=== PATIENT | female | born 1960 | race Caucasian/White ===

== ENCOUNTER 2022-05-26 17:15 | Emergency (ER) | payer OTHER ==
[2022-05-26] MEDS ORDERED: Ketorolac 30 MG/ML SDV IM ONE (18:44)
== END 2022-05-26 20:21 | disposition home or self-care (01) ==
LOC: JP.ED 17:15
DX: S83.92XA Sprain of unspecified site of left knee, initial encounter (principal); E78.00 Pure hypercholesterolemia, unspecified; Z88.1 Allergy status to other antibiotic agents; Z91.048 Other nonmedicinal substance allergy status; Z79.899 Other long term (current) drug therapy; Z90.49 Acquired absence of other specified parts of digestive tract; X50.1XXA Overexertion from prolonged static or awkward postures, initial encounter; Y92.69 Other specified industrial and construction area as the place of occurrence of the external cause
CPT/HCPCS: 73564; 96372; 99283; J1885

== ENCOUNTER 2024-09-29 07:27 | Day surgery (SDC) | payer MEDICAID ==
[2024-09-29] MEDS ORDERED: fentaNYL 100 MCG/2 ML SDV ONE ×2 (07:48→10:05)
[2024-09-29] MEDS ORDERED: Midazolam 1 MG/ML 2 ML SDV ONE ×3 (07:48→10:04)
[2024-09-29] MEDS ORDERED: Propofol 200 MG/20 ML SDV ONE ×3 (07:48→10:45)
[2024-09-29 08:03] LABS: BASOPHILS PERCENT AUTO 0.4 % (0.1-1.3); EOSINOPHILS ABSOLUTE AUTO 0.08 K/uL (0.00-0.40); EOSINOPHILS PERCENT AUTO 1.7 % (0.0-5.4); HEMATOCRIT 41.6 % (34.3-46.0); HEMOGLOBIN 13.5 g/dL (11.2-15.5); IMMATURE GRAN PERCENT AUTO 0.2 % (0.0-0.7); LYMPHOCYTES ABSOLUTE AUTO 2.56 K/uL (0.8-3.3); LYMPHOCYTES PERCENT AUTO 53.3 % (11.4-47.7); MEAN CORPUSCULAR HGB CONC 32.5 g/dL (31.6-35.5); MEAN CORPUSCULAR VOLUME 95.6 fL (81.4-99.0); MONOCYTES PERCENT AUTO 12.5 % (3.3-12.6); NEUTROPHILS ABSOLUTE AUTO 1.53 K/uL (1.0-7.6); NEUTROPHILS PERCENT AUTO 31.9 % (40.0-78.1); PLATELET COUNT,PLT 156 K/uL (130-375); RED BLOOD CELL COUNT 4.35 M/uL (3.77-5.24); WHITE BLOOD CELL COUNT,WBC 4.8 K/uL (3.2-11.0)
[2024-09-29 08:04] LABS: BASOPHILS ABSOLUTE AUTO 0.02 K/uL (0.00-0.10); IMMATURE GRAN ABSOLUTE AUTO 0.01 K/uL (0.00-0.23)
[2024-09-29 08:19] LABS: INR 0.9; PROTHROMBIN TIME 9.7 sec (9.2-10.6)
[2024-09-29 08:29] LABS: A/G RATIO 1.2 (1.2-2.2); ALANINE AMINOTRANSFERASE,ALT 32 U/L (12-78); ALBUMIN 3.8 g/dL (3.4-5.0); ALKALINE PHOSPHATASE 104 U/L (46-116); ANION GAP 8.5 mmol/L (5.0-14.0); ASPARTATE AMNIOTRANSFERASE,AST 24 U/L (15-37); BILIRUBIN TOTAL 0.4 mg/dL (0.2-1.0); BLOOD UREA NITROGEN,BUN 13 mg/dL (7-18); CALCIUM 9.1 mg/dL (8.5-10.1); CARBON DIOXIDE,CO2 27 mmol/L (21-32); CHLORIDE,CL 106 mmol/L (100-108); CREATININE 1.1 mg/dL (0.6-1.0); EST CRCL DRUG DOSING (CG) 44.62 mL/min; ESTIMATED GFR 56 mL/min (>60); GLUCOSE RANDOM 114 mg/dL (74-106); POTASSIUM,K 4.1 mmol/L (3.6-5.2); PROTEIN TOTAL,TP 7.1 g/dL (6.4-8.2); SODIUM,NA 141 mmol/L (140-148)
[2024-09-29] MEDS ORDERED: ceFAZolin 2 GM in Premix Bag 1 BAG IV ONE (08:30)
[2024-09-29] MEDS ORDERED: ceFAZolin 2 GM in Sodium Chloride 0.9% 50 ML IV ONE (08:30)
[2024-09-29] MEDS: Lactated Ringers 1,000 ML IV SCH (08:46)
[2024-09-29] MEDS: Nozin Nasal Sanitizer NASBOTH SCH ×2 (08:52→20:04)
[2024-09-29] MEDS: Clindamycin in 0.9 % Sod Chlor 900 MG in Premix Bag 1 BAG IV ONE (09:35)
[2024-09-29] MEDS ORDERED: Diclofenac Sodium 1% Gel 100 GM Tube TOP PRN (09:41)
[2024-09-29] MEDS ORDERED: Albuterol 6.7 GM Inhaler INH PRN (09:41)
[2024-09-29] MEDS ORDERED: SUMATRIPTAN 20 MG NAS PRN (09:41)
[2024-09-29] MEDS ORDERED: Methocarbamol 500 MG Tab PO PRN (09:41)
[2024-09-29] MEDS ORDERED: traMADol 50 MG Tab PO PRN (09:44)
[2024-09-29] MEDS ORDERED: Docusate Sodium 100 MG Cap PO PRN (09:45)
[2024-09-29] MEDS ORDERED: Morphine 2 MG/ML SYRINGE IVPUSH PRN (09:45)
[2024-09-29] MEDS ORDERED: Magnesium Hydroxide 400 MG/5 ML Susp 30 ML Cup PO PRN (09:45)
[2024-09-29] MEDS ORDERED: SUMAtriptan 50 MG Tab PO PRN (10:07)
[2024-09-29] MEDS: Tranexamic Acid 1,000 MG in Sodium Chloride 0.9% 50 ML IV ONE (10:17)
[2024-09-29] MEDS: Bupivacaine 0.5% 50 ML MDV ONE (11:50)
[2024-09-29] MEDS: Ketorolac 30 MG/ML SDV IVPUSH PRN (13:02)
[2024-09-29] MEDS: Acetaminophen 325 MG Tab PO SCH (13:13)
[2024-09-29] MEDS: Ondansetron 4 MG/2 ML SDV IVPUSH PRN (13:14)
[2024-09-29] MEDS: Sodium Chloride 0.9% 1,000 ML IV SCH (13:24)
[2024-09-29] MEDS: HYDROmorphone 2 MG Tab PO PRN (14:13)
[2024-09-29] MEDS: Cyclobenzaprine 10 MG Tab PO PRN (17:13)
[2024-09-29] MEDS: Clindamycin in 0.9 % Sod Chlor 900 MG in Premix Bag 1 BAG IV SCH (17:13)
[2024-09-29] MEDS: Pantoprazole 40 MG Tab.CR PO SCH (17:13)
[2024-09-29] MEDS: atorvaSTATin 10 MG Tab PO SCH (20:03)
[2024-09-29] MEDS: Gabapentin 400 MG Cap PO SCH (20:03)
[2024-09-29] MEDS: Topiramate 25 MG Tab PO SCH (20:04)
[2024-09-30] MEDS: DULoxetine 30 MG Cap PO SCH (09:02)
[2024-09-30] MEDS: Verapamil 180 MG Tab.ER PO SCH (09:02)
[2024-09-30] MEDS: Mometasone Furoate Nasal Spray 17 GM Canister NASBOTH SCH (09:03)
[2024-09-30] MEDS: Aspirin 325 MG Tab.EC PO SCH (09:03)
[2024-09-30] MEDS: Multivitamins with Iron/Calcium/Folic Acid/Minerals Tab PO SCH (09:03)
[2024-09-30] MEDS: Cholecalciferol (Vitamin D3) 25 MCG Tab PO SCH (09:04)
== END 2024-09-30 17:42 | disposition home or self-care (01) ==
LOC: JP.SDS 07:27 → JP.ICU 09:45 → JP.SDS 09-30 17:42
PROVIDERS: ATTEND Specialist
DX: M17.12 Unilateral primary osteoarthritis, left knee (principal); K21.9 Gastro-esophageal reflux disease without esophagitis; J45.909 Unspecified asthma, uncomplicated
CPT/HCPCS: 01400; 27447; 36415; 73560; 80053; 85025; 85610; 93005; 93010; 97110; 97116; 97161; 97165; 97530; A9270; C1713; C1776; J0665; J0737; J1885; J2250; J2405; J2704; J3010; J7030; J7120